=== PATIENT | male | born 1995 | race Caucasian/White ===

== ENCOUNTER 2019-05-27 21:00 | Emergency (ER) | payer OTHER ==
[2019-05-27 21:25] VITALS: BP 146/89
[2019-05-27] MEDS ORDERED: Amoxicillin/Clavulanate TAB* 875 MG PO ONE (21:36)
--- NOTE | 2019-05-27 21:36 | UC ---
Ear Complaint HPI - HPI Summary HPI Summary: History of serous otitis media about 4 years ago, which he states improved with an antibiotic. For the past 2 months, his ears have been bothering him, without decreased hearing, fever, headache, sore throat. For the past 3 nights, he is getting a piercing pain in the ear which is not allowing him to sleep. He has been using ibuprofen or excedrin--last ibu 800mg was last night, last excedrin was a few hours ago. - History of Current Complaint Chief Complaint: UCEar Stated Complaint: LEFT EAR CONCERN Time Seen by Provider: 05/27/19 21:21 Hx Obtained From: Patient Onset/Duration: Gradual Onset, Lasting Days - 3 Severity Initially: Moderate Severity Currently: Moderate Pain Intensity: 5 Aggravating Factors: Nothing Alleviating Factors: OTC Meds Associated Signs/Symptoms: Negative: Discharge, Hearing Loss, Trauma to Ear, Swelling @ - Allergies/Home Medications Allergies/Adverse Reactions: Allergies Allergy/AdvReac Type Severity Reaction Status Date / Time No Known Allergies Allergy Verified 05/27/19 21:16 Home Medications: Home Medications [id number] Es (Nf) [Excedrin Extra Strength 250-250-65 mg (NF)] 2 tab PO Q4H PRN 05/27/19 [History Confirmed 05/27/19] Ibuprofen TAB* [Motrin TAB* 800 MG] 800 mg PO Q3H PRN 05/27/19 [History Confirmed 05/27/19] PMH/Surg Hx/FS Hx/Imm Hx Previously Healthy: Yes - hsitory of poor dentition - Surgical History Surgical History: None - Family History Known Family History: Positive: None - states everyone is healthy - Social History Occupation: Employed Full-time Lives: With Family Alcohol Use: Occasionally Substance Use Type: None Smoking Status (MU): Never Smoked Tobacco Review of Systems All Other Systems Reviewed And Are Negative: Yes Constitutional: Positive: Fatigue Skin: Positive: Negative Eyes: Positive: Negative ENT: Positive: Ear Ache, Other - denies heat and cold sensitivity Respiratory: Positive: Negative Cardiovascular: Positive: Negative Gastrointestinal: Positive: Negative Genitourinary: Positive: Negative Motor: Positive: Negative Neurovascular: Positive: Negative Musculoskeletal: Positive: Negative Neurological: Negative: Headache Psychological: Positive: Anxious Physical Exam Triage Information Reviewed: Yes Appearance: Well-Appearing, Pain Distress - moderate, looks uncomfortable, shifts restlessly in his chair. Vital Signs: Initial Vital Signs Temp 99 F 05/27/19 21:21 Pulse 88 05/27/19 21:21 Resp 18 05/27/19 21:21 BP 146/89 05/27/19 21:21 Pulse Ox 100 05/27/19 21:21 Eyes: Positive: Conjunctiva Clear ENT: Positive: Pharynx normal, TM dull - left serous fluid, but no erythema, no canal drainage or swelling. No adenopathy. Dental: Positive: Gross Decay/Caries @ Neck: Positive: Supple, Nontender, No Lymphadenopathy Respiratory: Positive: Lungs clear, Normal breath sounds Cardiovascular: Positive: RRR, No Murmur Musculoskeletal Exam: Normal Neurological: Positive: Alert, Muscle Tone Normal Skin Exam: Normal Images Dental: 1 - severe decay and gum swelling 2 - severe decay Ear Complaint Course/Dx - Course Course Of Treatment: I suspect that the source of pain could be dental in origin given the advanced decay, but Ned does not believe that to be the case. Will begin augmentin and flonase, hydrocodone given for tongith, with continued use of ibuprofen. - Differential Dx/Diagnosis Differential Diagnosis/HQI/PQRI: Otitis Externa, Otitis Media, Other - dental pain Provider Diagnosis: Acute serous otitis media, left ear, Dental caries Discharge - Sign-Out/Discharge Documenting (check all that apply): Patient Departure All imaging exams completed and their final reports reviewed: No Studies - Discharge Plan Condition: Stable Disposition: HOME Prescriptions: Amoxicillin/Clavulanate TAB* [Augmentin TAB 875*] 875 mg PO BID #14 tab Patient Education Materials: Serous Otitis Media (ED) Referrals: No Primary Care Phys,NOPCP [Primary Care Provider] - Additional Instructions: For relief of ear pain, augmentin has been given as an antibiotic. This will treat both an ear infection and dental infection. Hydrocodone can be used tonight and should give enough pain control to allow you to sleep. To relieve the fluid in the ear space, use flonase spry 2 sprays to both nostrils once daily. Continue ibuprofen 800mg three times daily for relief of pain. I urge you to seek a dental assessment for care. - Billing Disposition and Condition Condition: STABLE Disposition: Home
[2019-05-27] MEDS ORDERED: HYDROcodone/ACETAMIN 5-325 MG* 1 TAB PO ONE (21:37)
== END 2019-05-27 21:55 | disposition home or self-care (01) ==
LOC: UCCORT 21:00
DX: H65.02 Acute serous otitis media, left ear (principal); K02.9 Dental caries, unspecified
CPT/HCPCS: 99202; A9270-GY; G0463